=== PATIENT | female | born 1995 | race Caucasian/White ===

== ENCOUNTER 2017-10-13 05:40 | Outpatient (CLI) | payer OTHER ==
[~2017-10-13] VITALS: Ht 152.4 cm; Wt 61.2 kg
[2017-10-13] MEDS ORDERED: DESO1TAB72 PO (10:54)
[2017-10-13] MEDS ORDERED: OMEP40CA36 PO (10:54)
[2017-10-20] MEDS ORDERED: PANT40TA2 PO (13:11)
== END 2017-10-13 11:40 ==
LOC: PREOP 05:40
PROVIDERS: ATTEND Surgery
DX: Z01.818 Encounter for other preprocedural examination (principal); K21.9 Gastro-esophageal reflux disease without esophagitis

== ENCOUNTER → 2019-04-25 | Outpatient (CLI) | payer OTHER ==
[~2019-04-25] MED LIST: DESO1TAB72 PO; OMEP40CA36 PO; PANT40TA2 PO
--- NOTE | 2019-04-25 14:08 | Diagnostic Imaging Report ---
PROCEDURE: US Non-ob pelvis comp/trans. TECHNIQUE: Multiple realtime grayscale images were obtained of the pelvis in various projections endovaginally. Transabdominal imaging was also performed. INDICATION: Left lower quadrant pain for two days. FINDINGS: The uterus measures 5.7 x 3.7 x 2.3 cm. Endometrium is approximately 1 to 2 mm in thickness. No myometrial mass is detected. Right ovary could not be visualized due to overlying bowel gas. Left ovary measures 2.8 x 1.5 x 1.2 cm. There is blood flow to the left ovary. No adnexal mass or free fluid is seen. No abnormality at the area of pain in the left pelvis is identified. IMPRESSION: Nonvisualized right ovary. The study is otherwise unremarkable. Dictated by: Dictated on workstation # [id number]
== END ==
LOC: RAD 12:37
PROVIDERS: ATTEND Nurse Practitioner Family
DX: R10.32 Left lower quadrant pain (principal)
CPT/HCPCS: 76830; 76856